=== PATIENT | female | born 1945 | race Caucasian/White ===

== ENCOUNTER 2017-07-30 12:38 | Outpatient (CLI) | payer MEDICARE, OTHER ==
[2017-07-30 13:56] LABS: Hematocrit 41.3 % (36.0-47.0); Mean Platelet Volume 5.9 fL (7.4-10.4); Red Blood Cell (RBC) Count 4.43 mill/uL (4.20-5.40); White Blood Cell (WBC) Count 6.1 thou/uL (4.8-10.8)
[2017-07-30 14:03] LABS: PTT 26.2 SEC (22.9-36.1)
[2017-07-30 14:13] LABS: Anion Gap 12 mmol/L (10-20); BUN (Urea Nitrogen) 19 mg/dL (9.8-20.1); Calc. Creatinine Clearance 0 mL/min (70-130); Calcium 10.3 mg/dL (7.8-10.44); Carbon Dioxide 31 mmol/L (23-31); Chloride 101 mmol/L (98-107); Estimated GFR-MDRD 67
== END 2017-07-30 12:39 | disposition home or self-care (01) ==
LOC: LABBT 12:38
PROVIDERS: ATTEND Surgery
DX: Z01.818 Encounter for other preprocedural examination (principal); M51.16 Intervertebral disc disorders with radiculopathy, lumbar region; M48.061 Spinal stenosis, lumbar region without neurogenic claudication
CPT/HCPCS: 80048; 85027; 85610; 85730; 93005; 93010

== ENCOUNTER 2017-08-07 09:54 | Day surgery (SDC) | payer MEDICARE, OTHER ==
[2017-07-30 12:56] VITALS: BMI 25.3
[2017-08-07] MEDS ORDERED: Bacitracin Zinc Ointment 30 gm TUBE ONE (10:50)
[2017-08-07] MEDS ORDERED: Thrombin 5000 UNITS/5 ML VIAL ONE (10:50)
[2017-08-07] MEDS ORDERED: Sodium Chloride 0.9% 10 ML ONE (10:51)
[2017-08-07] MEDS ORDERED: CEFAZOLIN/Water 2 GM/20 ML SYRINGE ONE ×2 (11:00→11:26)
[2017-08-07] MEDS ORDERED: Midazolam HCl 2 mg/2 ml Vial ONE (12:19)
[2017-08-07] MEDS ORDERED: Fentanyl 100 MCG/2 ML VIAL ONE ×3 (12:35→15:43)
[2017-08-07] MEDS ORDERED: Glycopyrrolate 0.2 MG/ML 5 ML SYRINGE ONE (14:22)
[2017-08-07] MEDS ORDERED: Lidocaine 1% PF 5 ML VIAL ONE (14:22)
[2017-08-07] MEDS ORDERED: Dexamethasone 20 MG/5 ML VIAL ONE (14:22)
[2017-08-07] MEDS ORDERED: Propofol 200 MG/20 ML VIAL ONE (14:22)
[2017-08-07] MEDS ORDERED: Metoclopramide HCl 10 MG/2 ML VIAL ONE (14:22)
[2017-08-07] MEDS ORDERED: Ondansetron HCl/PF 4 MG/2 ML Vial ONE (14:22)
[2017-08-07] MEDS ORDERED: Promethazine HCl 25 MG/ML VIAL IM PRN ×2 (15:25→15:46)
[2017-08-07] MEDS ORDERED: Milk Of Magnesia 30 ML UDCUP PO PRN (15:25)
[2017-08-07] MEDS ORDERED: Meperidine HCl/PF 25 MG/ML VIAL SLOW IVP PRN ×2 (15:25→15:46)
[2017-08-07] MEDS ORDERED: Mag-Al 1200 mg/1200 mg/30 ML UDCUP PO PRN (15:25)
[2017-08-07] MEDS ORDERED: tiZANidine HCl 4 MG TAB PO PRN (15:25)
[2017-08-07] MEDS ORDERED: Acetaminophen 325 MG TAB PO PRN (15:25)
[2017-08-07] MEDS ORDERED: Fleet Enema 133 ML BOT PR PRN (15:25)
[2017-08-07] MEDS ORDERED: HYDROcodone/Acetaminophen 7.5/325 mg Tablet PO PRN (15:25)
[2017-08-07] MEDS ORDERED: Bisacodyl 10 MG SUPP PR PRN (15:25)
[2017-08-07] MEDS ORDERED: Promethazine HCl 25 MG/ML VIAL SLOW IVP PRN (15:46)
[2017-08-07] MEDS ORDERED: Ondansetron HCl/PF 4 MG/2 ML Vial IVP PRN (15:46)
[2017-08-07] MEDS ORDERED: Morphine Sulfate 2 MG/ML SYRINGE SLOW IVP PRN (15:46)
[2017-08-07] MEDS ORDERED: HYDROmorphone 2 MG/ML VIAL SLOW IVP PRN (15:46)
[2017-08-07] MEDS ORDERED: CEFAZOLIN/Water 2 GM/20 ML SYRINGE SLOW IVP SCH (16:00)
[2017-08-07] MEDS: Sodium Chloride 0.9% 1,000 ML IV SCH (19:22)
[2017-08-07] MEDS: CEFAZOLIN/Water 2 GM/20 ML SYRINGE SLOW IVP SCH (20:40)
[2017-08-07] MEDS ORDERED: Simvastatin 20 MG TAB PO SCH (21:00)
[2017-08-08] MEDS: Acetaminophen/Codeine 30-300mg Tablet PO PRN ×2 (00:06→09:09)
[2017-08-08] MEDS: CEFAZOLIN/Water 2 GM/20 ML SYRINGE SLOW IVP SCH (02:16)
[2017-08-08] MEDS: Sodium Chloride 0.9% 1,000 ML IV SCH (05:22)
[2017-08-08 08:03] VITALS: BP 130/73; TEMP 98.7
[2017-08-08] MEDS ORDERED: Triamterene/Hydrochlorothiazide 37.5 mg/25 mg Tablet PO SCH (09:00)
[2017-08-08] MEDS ORDERED: Fish Oil 1,000 MG CAP PO SCH (09:00)
[2017-08-08] MEDS ORDERED: Magnesium Oxide 400 MG TAB PO SCH (09:00)
--- NOTE | 2017-08-08 09:12 | PRG ---
DATE OF SERVICE: 08/08/2017 Ms. Link is doing well postoperative day 1 from a left L4-L5 hemilaminotomy, foraminotomy, and disk ectomy and also with left L4-5 far lateral transverse head approach for decompression of the left L4 nerve root. She is doing well postoperatively with improvement in her left leg pain. She is mobiliz ing. Her strength is good. We are making plans for dismissal. Follow up has been arranged.
--- NOTE | 2017-08-08 09:19 | OP ---
DATE OF SURGERY: 08/07/2017 WOUND TYPE: Type 1 wound. SURGEON: Zen Contreras M.D. STOCK CHECKERER: Duke Meneses PA-C. PREPROCEDURE DIAGNOSES: Left L4 and left L5 radiculopathies with disk extrusions and low back and le ft leg pain. PROCEDURES: 1. Left L4-L5 hemilaminotomy, foraminotomy for diskectomy to decompress left L5 nerve root. 2. Left transfacet approach for lateral disk extrusion compressing the exiting left L4 nerve root. 3. Use of operative microscope for microdissection. DESCRIPTION OF PROCEDURE: After informed consent was obtained from the patient, the patient brought to OR. After proper patient pause and identification was carried out, she was placed prone following excellent general endotracheal anesthesia and all appropriate points were padded. We identified the L4-L5 dorsal spines. A linear caro was made. This region was sterilely cleansed, prepared, and luan ped. Proper patient pause and identification was carried out. The wound was then opened with a comb ination of sharp, monopolar and blunt dissection, and the left L4-L5 segment was exposed all the way up to the left L3-L4 and inferior portion of the left L5. Localization film confirmed our area of in terest. We then performed a left L4-L5 hemilaminotomy approach, but then extended this to a transfac et approach to allow for access to both left L5 compress nerve root and the exiting left L4 compresse d nerve root via the lateral/far lateral transfacet approach. The microscope was brought in for micr odissection to complete this approach, we exposed the left side of the common dural tube and identifi ed the traversing left L5 nerve root and disk material was removed. We then turned our attention to maximizing the transfacet lateral/far lateral approach deep to expose left L4 nerve root and decompre ssed the foraminal component of the disk extrusion. This was done as well. At the conclusion of the case, we had excellent decompression of the left L4 and left L5 nerve roots. Copious irrigation occ urred. Throughout the wound was then maximized in regards to hemostasis and closed in anatomic layer s following the sprinkling of vancomycin powder. The patient emerged from aneshtesia.
== END 2017-08-08 10:25 | disposition home or self-care (01) ==
LOC: SDC 09:54 → SURG B 15:25 → SDC 08-08 10:25
PROVIDERS: ATTEND Surgery
PROC: 0ST20ZZ Resection of Lumbar Vertebral Disc, Open Approach (ICD-10-PCS; principal; 2017-08-07)
PROC: 01NB0ZZ Release Lumbar Nerve, Open Approach (ICD-10-PCS; 2017-08-07)
DX: M51.16 Intervertebral disc disorders with radiculopathy, lumbar region (principal); Z79.899 Other long term (current) drug therapy; Z90.49 Acquired absence of other specified parts of digestive tract; Z98.890 Other specified postprocedural states
CPT/HCPCS: 76001; 96374; A4216; J0131; J1100; J2001; J2250; J2405; J2704; J2765; J3010; J3370; J3490

== ENCOUNTER 2017-12-05 12:33 | Outpatient (CLI) | payer MEDICARE, OTHER ==
--- NOTE | 2017-12-05 15:59 | MMO ---
SCREENING MAMMOGRAPHY 12/05/17 COMPARISON: 11/14/16, 11/02/15 and 10/07/14. HISTORY: Screening mammogram. FINDINGS: The patient's mammogram is interpreted with the assistance of computer aided detection. There are sca ttered fibroglandular densities present. Calcification noted on the right. There is no dominant mass or architecture distortion. No concerning microcalcifications are noted. IMPRESSION: BI-RADS 2: Benign Finding(s) Routine annual screening mammography (for women over age 40). POS: [facility]
== END 2017-12-05 12:34 | disposition home or self-care (01) ==
LOC: SCSMAMMO 12:33
PROVIDERS: ATTEND Family Medicine
DX: Z12.31 Encounter for screening mammogram for malignant neoplasm of breast (principal)
CPT/HCPCS: 77067

== ENCOUNTER 2018-04-22 08:50 | Outpatient (CLI) | payer MEDICARE, OTHER ==
--- NOTE | 2018-04-22 11:38 | MRI ---
MRI OF LUMBAR SPINE: DATE: 04/22/18. COMPARISON: 03/14/17. HISTORY: Radiculopathy, back pain radiating down the right leg and hip. TECHNIQUE: Multiplanar, multisequence MR imaging of the lumbar spine is obtained without contrast. FINDINGS: There is heterogeneity of the osseous marrow signal, nonspecific and similar when compared to the 03/10 01/24 exam. Sagittal STIR imaging demonstrates mild edematous degenerative end plate change to the ri ght of midline at L3-4. There is no anterolisthesis or retrolisthesis noted. T12-L1: There is disk space narrowing, disk desiccation, and mild disk bulge. There is mild bilater al facet hypertrophy. There is no significant central canal or neural foraminal stenosis. L1-2: Mild bilateral facet hypertrophy. There is disk space narrowing with disk desiccation and mild disk bulge. There is no significant maryanne tral canal or neural foraminal stenosis. L2-3: There is mild bilateral facet hypertrophy and hypertrophy of the ligamentum flavum. There is disk space narrowing, disk desiccation, and mild disk bulge with no significant central canal or neur al foraminal stenosis. L3-4: Mild bilateral facet hypertrophy and hypertrophy of the ligamentum flavum. No significant maryanne tral canal stenosis. Mild right neural foraminal stenosis. No left neural foraminal stenosis. L4-5: Disk space narrowing, disk desiccation, and mild disk bulge. There is no significant central canal stenosis or right neural foraminal stenosis. There is severe left neural foraminal stenosis on the basis of a foraminal/post-foraminal disk herniation as well as facet hypertrophy with osteophyte encroachment on the neural foramen. When compared to the prior examination, foraminal and post-fora romina disk herniation has worsened. There is mass effect on the exiting L4 nerve root. L5-S1: There is mild disk space narrowing and disk bulge. There is mild bilateral facet hypertrophy . There is no significant central canal or neural foraminal stenosis. The patient appears status post laminectomy at L4-5 and L5-S1. Postoperative changes are not optimal ly assessed without contrast media and appear to represent multilevel left-sided hemilaminectomies. The visualized retroperitoneal structures demonstrate no acute findings. IMPRESSION: Multilevel postoperative and degenerative change is seen within the lumbar spine as detailed above. The most significant finding is severe neural foraminal stenosis on the left at L4-5 on the basis of foraminal and post-foraminal disk herniation as well as facet hypertrophy with osteophyte encroachmen t on the neural foramen. Postoperative changes are not optimally assessed without IV contrast. POS: [facility]
--- NOTE | 2018-04-22 11:49 | RAD ---
LUMBAR SPINE FOUR VIEWS: 04/22/2018 HISTORY: Back pain, radiating down the right hip and leg. Prior surgery. COMPARISON: None. FINDINGS: Frontal imaging demonstrates intact pedicles on frontal imaging. Assuming five lumbar type vertebral bodies, there is a hypoplastic rib on the right, at T12, and no definite left-sided T12 rib. Clips in the right upper quadrant suggest prior cholecystectomy. Lateral examination, in the neutral position, demonstrates no significant anterolisthesis or retrolis thesis. There is facet hypertrophy bilaterally, at L4-L5 and at L5-S1. On flexion imaging, no signi ficant anterolisthesis or retrolisthesis is seen. Extension imaging demonstrates no significant ante rolisthesis or retrolisthesis. No acute osseous abnormality is seen. IMPRESSION: No acute osseous abnormality noted. POS: [facility]
== END 2018-04-22 08:51 | disposition home or self-care (01) ==
LOC: SCSMRI 08:50
PROVIDERS: ATTEND Physician Assistant Surgical
DX: M48.061 Spinal stenosis, lumbar region without neurogenic claudication (principal); M51.16 Intervertebral disc disorders with radiculopathy, lumbar region; M54.5 Low back pain; M47.26 Other spondylosis with radiculopathy, lumbar region; M99.83 Other biomechanical lesions of lumbar region; M25.78 Osteophyte, vertebrae; Z98.890 Other specified postprocedural states
CPT/HCPCS: 72120; 72148

== ENCOUNTER 2018-12-10 14:46 | Outpatient (CLI) | payer MEDICARE, OTHER ==
--- NOTE | 2018-12-11 11:14 | MMO ---
Bilateral MAMMO Bilat Screen [facility]. CLINICAL HISTORY: Patient is 73 years old and is seen for screening. The patient has no family history of breast cancer. The patient has no personal history of cancer. VIEWS: The views performed were: bilateral craniocaudal and bilateral mediolateral oblique. FILMS COMPARED: The present examination has been compared to prior imaging studies performed at [facility] on 10/07/2014, 11/02/2015, 11/14/2016 and 12/05/2017. This study has been interpreted with the assistance of computer-aided detection. MAMMOGRAM FINDINGS: There are benign appearing calcifications in the right breast. There are no suspicious masses, calcifications or areas of architectural distortion. Stable left retroareolar asymmetry. There are no suspicious masses, suspicious calcifications, or new areas of architectural distortion. IMPRESSION: THERE IS NO MAMMOGRAPHIC EVIDENCE OF MALIGNANCY. A ROUTINE FOLLOW-UP MAMMOGRAM IN 1 YEAR IS RECOMMENDED. ACR BI-RADS Category 2 - Benign finding MAMMOGRAPHY NOTE: 1. A negative mammogram report should not delay a biopsy if a dominant of clinically suspicious mass is present. 2. Approximately 10% to 15% of breast cancers are not detected by mammography. 3. Adenosis and dense breasts may obscure an underlying neoplasm.
== END 2018-12-10 14:47 | disposition home or self-care (01) ==
LOC: SCSMAMMO 14:46
PROVIDERS: ATTEND Family Medicine
DX: Z12.31 Encounter for screening mammogram for malignant neoplasm of breast (principal)
CPT/HCPCS: 77067